=== PATIENT | male | born 1995 | race African-American/Black ===

== ENCOUNTER 2016-09-06 11:15 | Emergency (ER) | payer SELFPAY ==
[~2016-09-06] VITALS: Ht 188 cm; Wt 89.8 kg
[2016-09-06] MEDS ORDERED: LIDO:MAALOX:DONNATAL 1:1:1 15 ML SINGLE DOSE SWSW ONE (11:45)
--- NOTE | 2016-09-06 12:02 | PHYS DOC ---
Past Medical History Past Medical History: Other Additional Past Medical Histor: nephrotic syndrome Past Surgical History: Other Additional Past Surgical Histo: 2 kidney biopsy Alcohol Use: Occasionally Drug Use: None Adult General Chief Complaint Chief Complaint: ABDOMINAL PAIN HPI HPI This is a 21-year-old male who has history of nephrotic syndrome who recently moved back to this area who's had significant left upper quadrant abdominal pain for the last day. Patient was seen at [facility] yesterday for his symptoms and had laboratory workup that was unremarkable. His pain is still persisted since that time. He states it is worse approximately 30 minutes after meals. At rest and upon my initial assessment in the room, the patient does not appear to be in any distress states his pain is fairly well controlled. He denies any drug or alcohol use. A dose of Lasix was given to him yesterday regarding his history of nephrotic syndrome follow-up with Dr. Mckeon was advised. He denies any urinary complaints. He denies any fever or chills. Review of Systems Review of Systems Constitutional: Denies fever or chills [] Eyes: Denies change in visual acuity, redness, or eye pain [] HENT: Denies nasal congestion or sore throat [] Respiratory: Denies cough or shortness of breath [] Cardiovascular: No additional information not addressed in HPI [] GI: Has abdominal pain, has nausea, denies vomiting, bloody stools or diarrhea [ ] : Denies dysuria or hematuria [] Musculoskeletal: Denies back pain or joint pain [] Integument: Denies rash or skin lesions [] Neurologic: Denies headache, focal weakness or sensory changes [] Endocrine: Denies polyuria or polydipsia [] Current Medications Current Medications Current Medications Medications (Trade) Dose Ordered Sig/Carlos Start Time Stop Time Status Last Admin Dose Admin Multi-Ingredient Mouthwash/Gargle (Gi Cocktail Single Dose) 15 ml 1X ONCE 09/06/16 11:45 09/06/16 11:46 DC 09/06/16 11:55 15 ML Allergies Allergies Allergies Coded Allergies Type Severity Reaction Last Updated Verified lisinopril Allergy Intermediate cough 09/06/16 Yes Physical Exam Physical Exam Constitutional: Well developed, well nourished, no acute distress, non-toxic appearance. [] HENT: Normocephalic, atraumatic, bilateral external ears normal, oropharynx moist, no oral exudates, nose normal. [] Eyes: PERRLA, EOMI, conjunctiva normal, no discharge. [] Neck: Normal range of motion, no tenderness, supple, no stridor. [] Cardiovascular:Heart rate regular rhythm, no murmur [] Lungs & Thorax: Bilateral breath sounds clear to auscultation [] Abdomen: Bowel sounds normal, soft, epigastrium and LUQ tenderness, no masses, no pulsatile masses. [] Skin: Warm, dry, no erythema, no rash. [] Back: No tenderness, no CVA tenderness. [] Extremities: No tenderness, no cyanosis, no clubbing, ROM intact, no edema. [] Neurologic: Alert and oriented X 3, normal motor function, normal sensory function, no focal deficits noted. [] Psychologic: Affect normal, judgement normal, mood normal. [] Current Patient Data Vital Signs Vital Signs Date Time Temp Pulse Resp B/P Pulse Ox O2 Delivery O2 Flow Rate FiO2 09/06/16 11:17 97.7 54 18 127/84 100 Room Air 97.7 EKG EKG [] Radiology/Procedures Radiology/Procedures [] Course & Med Decision Making Course & Med Decision Making Pertinent Labs and Imaging studies reviewed. (See chart for details) Upon my reassessment after GI cocktail, the patient's symptoms have vastly improved. Patient had significant workup yesterday at [facility] and I do not see an indication to repeat that at this time. His vital signs. Normal and he is in no distress. His symptoms have improved significantly GI cocktail and so I 'll be providing him a prescription for omeprazole as well as a GI follow-up as he could require endoscopy. Return precautions were provided and patient already has a prescription for Zofran at home and advised him to continue taking that as needed for any nausea as well as to maintain a bland diet and to avoid any drug or alcohol use. Dragon Disclaimer Dragon Disclaimer This electronic medical record was generated, in whole or in part, using a voice recognition dictation system. Departure Departure Impression: Primary Impression: LUQ abdominal pain Disposition: HOME, SELF-CARE Condition: IMPROVED Referrals: NAE CLAYTON MD Patient Instructions: Abdominal Pain, [id number] Additional Instructions: Please follow-up with the GI doctor in the next 1-2 days as instructed and take your medications as needed. Continue to stay well-hydrated and eat a bland diet. Avoid any drugs or alcohol. Return to ER if you develop any worsening abdominal pain and vomiting. Scripts Pantoprazole Sodium (Protonix)20 Mg Tablet.dr20 Mg PO DAILY #10 TAB Prov:NAE CASILLAS DO 09/06/16 NAE CASILLAS DO Sep 06, 2016 12:02
[2016-09-06] MEDS ORDERED: PANT20TA2 PO (12:21)
[2016-09-06 12:30] VITALS: BP 127/62
== END 2016-09-06 12:30 | disposition home or self-care (01) ==
LOC: ER 11:15
DX: R10.12 Left upper quadrant pain (principal); Z88.8 Allergy status to other drugs, medicaments and biological substances
CPT/HCPCS: 99283

== ENCOUNTER → 2018-06-18 | Outpatient (CLI) | payer BC ==
[2018-05-01 11:51] VITALS: BP 158/95
[~2018-06-18] MED LIST: FURO20TA3 PO; PANT20TA2 PO; PRED20TA PO
[2018-06-18 09:22] LABS: BILIRUBIN,URINE NEGATIVE (NEG); CLARITY,URINE CLEAR; COLOR,URINE YELLOW; NITRITE,URINE NEGATIVE (NEG); PROTEIN,URINE NEGATIVE (NEG-TRACE)
[2018-06-18 09:28] LABS: BACTERIA,URINE 0 /HPF (0-FEW); RBC,URINE 0 /HPF (0-2); SQUAMOUS EPITHELIAL CELL,UR OCC /LPF; WBC,URINE OCC /HPF (0-4)
[2018-06-18 09:33] LABS: ALBUMIN 3.5 g/dL (3.4-5.0); CALCIUM 9.2 mg/dL (8.5-10.1); CREATININE 0.9 mg/dL (0.7-1.3); GFR 126.5; PHOSPHORUS 3.9 mg/dL (2.6-4.7); POTASSIUM 3.9 mmol/L (3.5-5.1)
[2018-06-18 20:11] LABS: CREAT RD UR 183.3 mg/dL (Not Estab.); MICRO CREAT RATIO 8.1 mg/g creat (0.0-30.0); MICROALB RD UR 14.8 ug/mL (Not Estab.)
== END | disposition home or self-care (01) ==
LOC: LAB 08:46
PROVIDERS: ATTEND Internal Medicine Nephrology
DX: D57.3 Sickle-cell trait (principal); T38.0X5A Adverse effect of glucocorticoids and synthetic analogues, initial encounter; I12.9 Hypertensive chronic kidney disease with stage 1 through stage 4 chronic kidney disease, or unspecified chronic kidney disease; N18.1 Chronic kidney disease, stage 1; N17.8 Other acute kidney failure; R80.1 Persistent proteinuria, unspecified; R03.0 Elevated blood-pressure reading, without diagnosis of hypertension; R63.5 Abnormal weight gain; Z68.25 Body mass index [BMI] 25.0-25.9, adult
CPT/HCPCS: 36415; 80069; 81001; 82043; 82570

== ENCOUNTER 2018-11-17 07:00 | Emergency (ER) | payer BC ==
[~2018-11-17] VITALS: Ht 190.5 cm; Wt 86.2 kg
--- NOTE | 2018-11-17 07:39 | PHYS DOC ---
Past Medical History Past Medical History: Renal Disease, Other Additional Past Medical Histor: nephrotic syndrome Past Surgical History: Other Additional Past Surgical Histo: 2 kidney biopsy Alcohol Use: None Drug Use: None Adult General Chief Complaint Chief Complaint: ABDOMINAL PAIN HPI HPI Patient is a 23 year old AA male with history of nephrotic syndrome who presents with intermittent mid abdominal pain with nausea and vomiting starting earlier today. Patient denies any decreased urinary output, but does report dark urine. Denies increased urinary frequency urgency burning and hematuria. No flank pain, back pain. No leg pain, swelling. No other acute symptoms or complaints. Patient is not currently on any medications.[] Review of Systems Review of Systems Review of symptoms as per history of present illness. All other systems were reviewed and found to be within normal limits, except as documented in this note. Current Medications Current Medications Current Medications Medications (Trade) Dose Ordered Sig/Carlos Start Time Stop Time Status Last Admin Dose Admin Ondansetron HCl (Zofran) 4 mg 1X ONCE 11/17/18 07:45 11/17/18 07:46 DC 11/17/18 07:37 4 MG Sodium Chloride 1,000 ml @ 1,000 mls/hr 1X ONCE 11/17/18 08:30 11/17/18 09:29 11/17/18 08:23 1,000 MLS/HR Allergies Allergies Allergies Coded Allergies Type Severity Reaction Last Updated Verified lisinopril Adverse Reaction Intermediate cough 09/18/16 Yes Physical Exam Physical Exam Constitutional: Well developed, well nourished, no acute distress, non-toxic appearance. [] HENT: Normocephalic, atraumatic, bilateral external ears normal, oropharynx mo ist, no oral exudates, nose normal. [] Eyes: PERRLA, EOMI, conjunctiva normal, no discharge. [] Neck: Normal range of motion, no tenderness, supple, no stridor. [] Cardiovascular:Heart rate regular rhythm, no murmur [] Lungs & Thorax: Bilateral breath sounds clear to auscultation [] Abdomen: Bowel sounds normal, soft, no tenderness, no masses, no pulsatile masses. [] Skin: Warm, dry, no erythema, no rash. [] Back: No tenderness. [] Extremities: No tenderness, no cyanosis, no clubbing, ROM intact, no edema. [] Neurologic: Alert and oriented X 3, normal motor function, normal sensory function, no focal deficits noted. [] Psychologic: Affect normal, judgement normal, mood normal. [] Current Patient Data Vital Signs Vital Signs Date Time Temp Pulse Resp B/P (MAP) Pulse Ox O2 Delivery O2 Flow Rate FiO2 11/17/18 08:16 60 18 131/72 (91) 99 Room Air 11/17/18 07:16 97.8 97.8 Lab Values Laboratory Tests Test 11/17/18 07:00 11/17/18 07:14 Urine Collection Type Unknown Urine Color Yellow Urine Clarity Hazy Urine pH 6.0 Urine Specific [place] >=1.030 Urine Protein >=300 mg/dL (NEG-TRACE) Urine Glucose (UA) Negative mg/dL (NEG) Urine Ketones (Stick) Negative mg/dL (NEG) Urine Blood Large (NEG) Urine Nitrite Negative (NEG) Urine Bilirubin Negative (NEG) Urine Urobilinogen Dipstick 0.2 mg/dL (0.2 mg/dL) Urine Leukocyte Esterase Negative (NEG) Urine RBC 3-5 /HPF (0-2) Urine WBC 5-10 /HPF (0-4) Urine Squamous Epithelial Cells Occ /LPF Urine Bacteria Many /HPF (0-FEW) Urine Hyaline Casts Few /HPF Urine Mucus Marked /LPF White Blood Count 12.9 x10^3/uL (4.0-11.0) H Red Blood Count 6.11 x10^6/uL (4.30-5.70) H Hemoglobin 17.5 g/dL (13.0-17.5) Hematocrit 51.1 % (39.0-53.0) Mean Corpuscular Volume 84 fL (79-100) Mean Corpuscular Hemoglobin 29 pg (25-35) Mean Corpuscular Hemoglobin Concent 34 g/dL (31-37) Red Cell Distribution Width 14.2 % (11.5-14.5) Platelet Count 370 x10^3/uL (140-400) Neutrophils (%) (Auto) 59 % (31-73) Lymphocytes (%) (Auto) 29 % (24-48) Monocytes (%) (Auto) 8 % (0-9) Eosinophils (%) (Auto) 3 % (0-3) Basophils (%) (Auto) 1 % (0-3) Neutrophils # (Auto) 7.6 x10^3uL (1.8-7.7) Lymphocytes # (Auto) 3.7 x10^3/uL (1.0-4.8) Monocytes # (Auto) 1.1 x10^3/uL (0.0-1.1) Eosinophils # (Auto) 0.4 x10^3/uL (0.0-0.7) Basophils # (Auto) 0.1 x10^3/uL (0.0-0.2) Sodium Level 133 mmol/L (136-145) L Potassium Level 3.7 mmol/L (3.5-5.1) Chloride Level 99 mmol/L (98-107) Carbon Dioxide Level 35 mmol/L (21-32) H Anion Gap (6-14) Blood Urea Nitrogen 26 mg/dL (8-26) Creatinine 1.1 mg/dL (0.7-1.3) Estimated GFR (Cockcroft-Gault) 99.5 BUN/Creatinine Ratio 24 (6-20) H Glucose Level 98 mg/dL (70-99) Calcium Level 7.8 mg/dL (8.5-10.1) L Total Bilirubin 0.3 mg/dL (0.2-1.0) Aspartate Amino Transferase (AST) 34 U/L (15-37) Alanine Aminotransferase (ALT) 34 U/L (16-63) Alkaline Phosphatase 75 U/L (46-116) Total Protein 4.7 g/dL (6.4-8.2) L Albumin 0.7 g/dL (3.4-5.0) L Albumin/Globulin Ratio 0.2 (1.0-1.7) L Laboratory Tests 11/17/18 07:14 Laboratory Tests 11/17/18 07:14 EKG EKG [] Radiology/Procedures Radiology/Procedures [] Course & Med Decision Making Course & Med Decision Making Pertinent Labs and Imaging studies reviewed. (See chart for details) [Patient's abdomen soft, nontender. Nausea improved with Zofran. Patient's labs reviewed suggestive of syndrome. IV fluids given to prevent further dehydration. Recommendations are continued supportive care and close follow-up with neuro follow G for further treatment. Return precautions reviewed.] Dragon Disclaimer Dragon Disclaimer This electronic medical record was generated, in whole or in part, using a voice recognition dictation system. Departure Departure Impression: Primary Impression: Vomiting Additional Impressions: Abdominal pain Nephrotic syndrome Disposition: 01 HOME, SELF-CARE Condition: STABLE Referrals: NO PCP (PCP) Patient Instructions: Abdominal Pain, Nausea and Vomiting, [id number], Nephrotic Syndrome Additional Instructions: Please take nausea medication as directed. Drink clear liquids only for the next 6-12 hours then gradually increase to bland diet as tolerated. 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 Return to the ED if new or worsening symptoms. Scripts Ondansetron Hcl (ZOFRAN) 4 Mg Tablet 1 TAB PO Q6HRS, #10 TAB 0 Refills Prov: LANDRY WHITE DO 11/17/18 Problem Qualifiers LANDRY WHITE DO Nov 17, 2018 07:39
[2018-11-17 07:44] LABS: BASO # 0.1 x10^3/uL (0.0-0.2); BASO % 1 % (0-3); EOS # 0.4 x10^3/uL (0.0-0.7); EOS % 3 % (0-3); HEMATOCRIT 51.1 % (39.0-53.0); HEMOGLOBIN 17.5 g/dL (13.0-17.5); LYMPH # 3.7 x10^3/uL (1.0-4.8); LYMPH % 29 % (24-48); MEAN CORPUSCULAR HEMOGLOBIN 29 pg (25-35); MEAN CORPUSCULAR HGB CONC 34 g/dL (31-37); MEAN CORPUSCULAR VOLUME 84 fL (79-100); MONO # 1.1 x10^3/uL (0.0-1.1); MONO % 8 % (0-9); NEUT # 7.6 x10^3uL (1.8-7.7); NEUT % 59 % (31-73); PLATELET COUNT 370 x10^3/uL (140-400); RED BLOOD COUNT 6.11 x10^6/uL (4.30-5.70); RED CELL DISTRIBUTION WIDTH 14.2 % (11.5-14.5); WHITE BLOOD COUNT 12.9 x10^3/uL (4.0-11.0)
[2018-11-17] MEDS ORDERED: IV NORMAL SALINE 1000ML BAG 1,000 ML IV ONE ×2 (07:45→08:30)
[2018-11-17] MEDS ORDERED: ONDANSETRON PF 4 MG/2 ML VIAL. IV ONE (07:45)
[2018-11-17 07:47] LABS: BILIRUBIN,URINE NEGATIVE (NEG); COLOR,URINE YELLOW; NITRITE,URINE NEGATIVE (NEG); PROTEIN,URINE >=300 mg/dL (NEG-TRACE); UROBILINOGEN,URINE 0.2 mg/dL (0.2 mg/dL)
[2018-11-17 07:53] LABS: BLOOD UREA NITROGEN 26 mg/dL (8-26); BUN/CREATININE RATIO 24 (6-20); CALCIUM 7.8 mg/dL (8.5-10.1); CARBON DIOXIDE 35 mmol/L (21-32); CHLORIDE 99 mmol/L (98-107); CREATININE 1.1 mg/dL (0.7-1.3); GFR 99.5; GLUCOSE 98 mg/dL (70-99); POTASSIUM 3.7 mmol/L (3.5-5.1); SODIUM 133 mmol/L (136-145)
[2018-11-17 08:03] LABS: ALBUMIN 0.7 g/dL (3.4-5.0); ALBUMIN/GLOBULIN RATIO 0.2 (1.0-1.7); ALK PHOS 75 U/L (46-116); ALT (SGPT) 34 U/L (16-63); AST (SGOT) 34 U/L (15-37); TOTAL BILIRUBIN 0.3 mg/dL (0.2-1.0); TOTAL PROTEIN 4.7 g/dL (6.4-8.2)
[2018-11-17 08:11] LABS: BACTERIA,URINE MANY /HPF (0-FEW); CLARITY,URINE HAZY; HYALINE CASTS, URINE FEW /HPF; SQUAMOUS EPITHELIAL CELL,UR OCC /LPF
[2018-11-17] MEDS ORDERED: ONDA4TAB7 PO (08:29)
[2018-11-17 08:55] VITALS: BP 126/76
== END 2018-11-17 09:00 | disposition home or self-care (01) ==
LOC: ER 07:00
DX: R11.2 Nausea with vomiting, unspecified (principal); N04.9 Nephrotic syndrome with unspecified morphologic changes; Z88.8 Allergy status to other drugs, medicaments and biological substances
CPT/HCPCS: 36415; 80053; 81001; 85025; 87086; 96361; 96374; 99284; J2405; J7030

== ENCOUNTER → 2018-12-06 | Outpatient (CLI) | payer BC ==
[2018-11-17 08:55] VITALS: BP 126/76
[~2018-12-06] MED LIST changes: +ONDA4TAB7 PO
[2018-12-06 10:59] LABS: BILIRUBIN,URINE NEGATIVE (NEG); CLARITY,URINE CLEAR; COLOR,URINE YELLOW; NITRITE,URINE NEGATIVE (NEG); PROTEIN,URINE NEGATIVE (NEG-TRACE)
[2018-12-06 11:02] LABS: ALBUMIN 2.1 g/dL (3.4-5.0); CALCIUM 8.6 mg/dL (8.5-10.1); CREATININE 0.8 mg/dL (0.7-1.3); GFR 143.7; PHOSPHORUS 3.4 mg/dL (2.6-4.7); POTASSIUM 3.7 mmol/L (3.5-5.1)
[2018-12-06 11:04] LABS: CREATININE,RANDOM URINE 206.9 mg/dL (Not Establ.)
[2018-12-06 11:16] LABS: BACTERIA,URINE 0 /HPF (0-FEW); RBC,URINE 0 /HPF (0-2); SQUAMOUS EPITHELIAL CELL,UR OCC /LPF; WBC,URINE OCC /HPF (0-4)
== END | disposition home or self-care (01) ==
LOC: LAB 10:21
PROVIDERS: ATTEND Internal Medicine Nephrology
DX: N04.0 Nephrotic syndrome with minor glomerular abnormality (principal); N18.1 Chronic kidney disease, stage 1; N26.9 Renal sclerosis, unspecified; R80.1 Persistent proteinuria, unspecified; R31.9 Hematuria, unspecified
CPT/HCPCS: 36415; 80069; 81001; 82570; 84156

== ENCOUNTER → 2019-05-23 | Outpatient (CLI) | payer BC ==
[2019-05-23 13:18] LABS: BILIRUBIN,URINE NEGATIVE (NEG); CLARITY,URINE CLEAR; COLOR,URINE YELLOW; NITRITE,URINE NEGATIVE (NEG); PROTEIN,URINE 30 mg/dL (NEG-TRACE); UROBILINOGEN,URINE 0.2 mg/dL (0.2 mg/dL)
[2019-05-23 13:22] LABS: CREATININE,RANDOM URINE 289.1 mg/dL (Not Establ.)
[2019-05-23 13:27] LABS: BACTERIA,URINE FEW /HPF (0-FEW); RBC,URINE 0 /HPF (0-2); SQUAMOUS EPITHELIAL CELL,UR OCC /LPF
[2019-05-23 13:42] LABS: ALBUMIN 2.9 g/dL (3.4-5.0); CALCIUM 8.8 mg/dL (8.5-10.1); CREATININE 0.9 mg/dL (0.7-1.3); GFR 125.4; POTASSIUM 3.3 mmol/L (3.5-5.1)
== END | disposition home or self-care (01) ==
LOC: LAB 12:54
PROVIDERS: ATTEND Internal Medicine Nephrology
DX: N04.0 Nephrotic syndrome with minor glomerular abnormality (principal); K85.90 Acute pancreatitis without necrosis or infection, unspecified; R80.1 Persistent proteinuria, unspecified; K76.0 Fatty (change of) liver, not elsewhere classified; D57.3 Sickle-cell trait; R03.0 Elevated blood-pressure reading, without diagnosis of hypertension; R77.0 Abnormality of albumin; E78.5 Hyperlipidemia, unspecified; Z68.23 Body mass index [BMI] 23.0-23.9, adult
CPT/HCPCS: 36415; 80069; 81001; 82570; 84156

== ENCOUNTER → 2019-06-20 | Outpatient (CLI) | payer BC ==
[2019-06-20 10:22] LABS: CREATININE,RANDOM URINE 141.7 mg/dL (Not Establ.)
[2019-06-20 12:01] LABS: BILIRUBIN,URINE NEGATIVE (NEG); CLARITY,URINE CLEAR; COLOR,URINE YELLOW; NITRITE,URINE NEGATIVE (NEG); PROTEIN,URINE 30 mg/dL (NEG-TRACE); UROBILINOGEN,URINE 0.2 mg/dL (0.2 mg/dL)
[2019-06-20 12:09] LABS: BACTERIA,URINE 0 /HPF (0-FEW); RBC,URINE 0 /HPF (0-2); SQUAMOUS EPITHELIAL CELL,UR FEW /LPF; WBC,URINE 0 /HPF (0-4)
== END | disposition home or self-care (01) ==
LOC: LAB 09:14
PROVIDERS: ATTEND Internal Medicine Nephrology
DX: N04.0 Nephrotic syndrome with minor glomerular abnormality (principal); R80.1 Persistent proteinuria, unspecified; K76.0 Fatty (change of) liver, not elsewhere classified; D57.3 Sickle-cell trait; R03.0 Elevated blood-pressure reading, without diagnosis of hypertension; R77.0 Abnormality of albumin; E78.5 Hyperlipidemia, unspecified; E87.6 Hypokalemia; N17.0 Acute kidney failure with tubular necrosis; Z68.22 Body mass index [BMI] 22.0-22.9, adult
CPT/HCPCS: 81001; 82570; 84156